=== PATIENT | male | born 1975 | race Caucasian/White ===

== ENCOUNTER 2017-06-01 19:15 | Emergency (ER) | payer MEDICARE, OTHER ==
[2017-06-01 19:26] VITALS: BP 122/73; PULSE 95; RESP 16; TEMP 98
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
--- NOTE | 2017-06-01 19:47 | XR ---
EXAMINATION TYPE: XR wrist complete RT DATE OF EXAM: 06/01/2017 CLINICAL HISTORY: pain TECHNIQUE: Frontal, lateral and oblique images of the right wrist are obtained. Navicular views also obtained. COMPARISON: None. FINDINGS: There is no acute fracture/dislocation evident. The joint spaces appear within normal limits. The o verlying soft tissue appears unremarkable. IMPRESSION: There is no acute fracture or dislocation seen. ICD 10 NO FRACTURE, INITIAL EVALUATION
== END 2017-06-01 20:00 | disposition home or self-care (01) ==
LOC: EC 19:15
DX: S60.211A Contusion of right wrist, initial encounter (principal); G40.909 Epilepsy, unspecified, not intractable, without status epilepticus; F17.200 Nicotine dependence, unspecified, uncomplicated; Z79.899 Other long term (current) drug therapy; Z88.0 Allergy status to penicillin; Z91.030 Bee allergy status; W20.8XXA Other cause of strike by thrown, projected or falling object, initial encounter
CPT/HCPCS: 99283

== ENCOUNTER → 2017-10-11 | Outpatient (CLI) | payer MEDICARE, OTHER ==
--- NOTE | 2017-10-12 17:35 | MR ---
EXAMINATION TYPE: MR shoulder RT wo con DATE OF EXAM: 10/11/2017 COMPARISON: Plain film October 10, 2017 HISTORY: Pain TECHNIQUE: Multiplanar, multisequence imaging of the right shoulder is performed without contrast. FINDINGS: Rotator Cuff: Rotator cuff tendon is markedly attenuated. Partial full-thickness tear is suspected ve rsus marked attenuation of the supraspinatus tendon, abnormal increased signal present within the rot ator cuff tendon is present Acromioclavicular Joint: Hypertrophic change at the acromion clavicular joint, arthropathy causes mas s effect on the musculotendinous junction of supraspinatus Glenohumeral Joint: Intact Labrum: The labrum appears grossly intact given limitation of non-arthrogram study. Biceps Tendon: The long head of biceps is in normal location within bicipital groove. Bone marrow signal: Probable pseudocyst formation present in the humeral head. Other: There is a distal acromial spur. Subacromial subdeltoid bursa shows fluid signal present. IMPRESSION: Partial full-thickness tear is suspected of the rotator cuff as described, there is tendinopathy, cor relate for impingement.
== END | disposition home or self-care (01) ==
LOC: RADMRIMAIN 06:23
PROVIDERS: ATTEND Orthopaedic Surgery
DX: M75.81 Other shoulder lesions, right shoulder (principal)

== ENCOUNTER → 2018-01-03 | Outpatient (CLI) | payer MEDICARE, OTHER ==
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
== END | disposition home or self-care (01) ==
LOC: RADMRIMAIN 15:16
PROVIDERS: ATTEND Psychiatry & Neurology Neurology
DX: M48.02 Spinal stenosis, cervical region (principal); M54.5 Low back pain
CPT/HCPCS: 72141; 72148